=== PATIENT | female | born 1985 | race Caucasian/White ===

== ENCOUNTER 2016-07-21 07:08 | Emergency (ER) | payer MEDICAID ==
--- NOTE | ~2016-07-21 | ER ---
PATIENT'S NAME: [facility] AGE: 30 Y [address] ROOM: [place] [id number] LOCATION: [facility] ADMIT DATE: 07/21/2016 ER/Outpatient Report DISCHARGE DATE: 07/21/2016 FAMILY PHYSICIAN: Dillan Marrero MD ATTENDING PHYSICIAN: Skye Mathur TIME OF ARRIVAL: 0708 hours. TIME SEEN: 0708 hours. IDENTIFICATION: A 30-year-old female. CHIEF COMPLAINT: Asthma exacerbation. HISTORY OF PRESENT ILLNESS: The patient is a 30-year-old female with a history of asthma who is out of her medications and acutely short of breath this morning, so called 911. She has otherwise been feeling well. No fever or chills. Nonproductive cough. She does have seasonal allergic rhinitis. ALLERGIES: TO DAIRY, BUT NO KNOWN DRUG ALLERGIES. CURRENT MEDICATIONS: 1. She is supposed to be on Advair, albuterol nebulizers, and albuterol inhaler, and she is out of all 3 of those. 2. She is taking her Zyrtec and clonazepam. MEDICAL PROBLEMS: Asthma. PRIOR SURGERIES: Denies. SOCIAL HISTORY: The patient lives here in [place]. She is unemployed. Tobacco use: Occasional. Drug use: Denies. Alcohol: Denies. REVIEW OF SYSTEMS: All systems reviewed and negative other than what is noted in the HPI. Last menstrual period was the end of June. PATIENT'S NAME: [facility] AGE: 30 Y [address] ROOM: [place] [address] LOCATION: [facility] ADMIT DATE: 07/21/2016 ER/Outpatient Report DISCHARGE DATE: 07/21/2016 FAMILY PHYSICIAN: Dillan Marrero MD ATTENDING PHYSICIAN: Skye Mathur PHYSICAL EXAMINATION: VITAL SIGNS: Weight 62.9 kg, blood pressure 132/75, pulse 80, respirations 19, temperature 97.5, and saturation is 99% on room air. GENERAL: A 30-year-old female, in no acute distress. She has received DuoNeb treatment and an albuterol en route. HEENT: Unremarkable. Head: Normocephalic, atraumatic. Ears: TMs translucent, both ears. Nose: Mucosa pink, no lesions. Mouth: No lesions. Pharynx: Benign. NECK: Supple. No lymphadenopathy. LUNGS: Clear to auscultation. A few scattered wheezes. HEART: Regular rate and rhythm. ABDOMEN: Bowel sounds present. Soft and nondistended. No hepatosplenomegaly. No palpable masses. Nontender. SKIN: [place], warm, and dry. No lesions or rashes noted. NEUROLOGIC: No focal deficit. No lower extremity edema. No calf tenderness. DIAGNOSTIC DATA: Two-view chest x-ray: No acute process, pending Radiology over-read. IMPRESSION: Asthma exacerbation. PLAN: Prednisone 20 mg p.o. given here, 20 mg b.i.d. x5 days. Albuterol aerosol solution unit dose q.4 hours p.r.n. wheezing. Albuterol inhaler 2 puffs here and then 2 puffs q.4 hours p.r.n. wheezing. Follow up with Dr. Marrero next week, follow up sooner if any problems or concerns. Follow up immediately if any respiratory distress. The patient understands and agrees, and all questions have been answered. SKYE MATHUR MD CAR/modl /[id number] d: 07/21/16 1844 t: 07/24/16 0642, OUTPATIENT REPORT
== END 2016-07-21 08:15 | disposition disaster alternative care site (69) ==
LOC: GMED 07:08
DX: J45.901 Unspecified asthma with (acute) exacerbation (principal); Z91.011 Allergy to milk products; Z91.013 Allergy to seafood; Z79.899 Other long term (current) drug therapy
CPT/HCPCS: J7512

== ENCOUNTER → 2016-07-21 | Outpatient (CLI) | payer MEDICAID ==
[~2016-07-21] MED LIST: AMOXICILLIN875 MG PO; MIRALAX17 GM PO; PHENERGAN25 M1 PO; PRENATAL COMPL1 EACH OR; PROVENTIL OR V6.7 GM INH; TYLENOL325 MG PO
== END | disposition disaster alternative care site (69) ==
LOC: GAMB 06:52
DX: J45.901 Unspecified asthma with (acute) exacerbation (principal); R06.02 Shortness of breath; Z79.899 Other long term (current) drug therapy
CPT/HCPCS: A0422; A0425; A0427

== ENCOUNTER → 2016-08-29 | Outpatient (CLI) | payer MEDICAID | END | disposition disaster alternative care site (69) | LOC: GRAD 08-28 09:30 | DX: R10.30 Lower abdominal pain, unspecified (principal); N88.8 Other specified noninflammatory disorders of cervix uteri; N83.292 Other ovarian cyst, left side; N83.291 Other ovarian cyst, right side ==

== ENCOUNTER 2016-10-01 21:13 | Emergency (ER) | payer MEDICAID ==
--- NOTE | ~2016-10-01 | ER ---
[facility] 31 [facility] [address] ROOM: [place] [address] LOCATION: [facility] ADMIT DATE: 10/01/2016 ER/Outpatient Report DISCHARGE DATE: 10/01/2016 FAMILY PHYSICIAN: Dexter Darby MD ATTENDING PHYSICIAN: Darrian Pruett TIME: The patient was seen at 21:30. HISTORY OF PRESENT ILLNESS: This is a 31-year-old female. She was previously healthy. She is in with complaints of feeling shaky and nauseated and dizzy and lightheaded and double vision. It is gradual in onset. About 3 hours ago, she states she was outside and overheated, and did not have enough to drink, but she has been drinking fluids for the past three hours, and the symptoms have persisted. PAST MEDICAL HISTORY: She is vague about her medical history. She states she has some psychiatric problems and asthma. MEDICATIONS: She takes psych medications, she is uncertain what they are. She was started on a new psych medicine about one week ago. SOCIAL HISTORY: She smokes about one-fourth pack per day. She drinks alcohol occasionally. PHYSICAL EXAMINATION: GENERAL: Alert and cooperative female, in no acute distress. VITAL SIGNS: Stable. SKIN: Warm and dry. Color is normal. HEAD, EARS, EYES, NOSE, AND THROAT: Revealed pupils are equal, round, and reactive to light. Extraocular movements were intact. Ears, nose, and throat were clear. NECK: Supple. CARDIAC: Heart had a regular rate and rhythm without murmur. LUNGS: Clear. Breath sounds are equal. ABDOMEN: Soft. EXTREMITIES: Normal. NEUROLOGIC: Normal. LABORATORY DATA: CBC is unremarkable. Comprehensive metabolic profile revealed potassium was slightly low at 3.2. Urinalysis was negative. Specific gravity was 1.015. [facility] 31 Y [address] ROOM: [place] [address] LOCATION: [facility] ADMIT DATE: 10/01/2016 ER/Outpatient Report DISCHARGE DATE: 10/01/2016 FAMILY PHYSICIAN: Dexter Darby MD ATTENDING PHYSICIAN: Darrian Pruett ASSESSMENT: Mild dehydration/resolving. PLAN: Follow up with her regular doctor as needed. MD MARY SHARP/modl /[id number] d: 10/02/16 0655 t: 10/03/16 1754, OUTPATIENT REPORT
[2016-10-01 21:55] LABS: BASOPHIL # 0.1 K/uL (0.0-0.2); BASOPHIL % 0.8 %; EOSINOPHIL # 1.1 K/uL (0.0-0.5); EOSINOPHIL % 10.3 %; HEMATOCRIT 42.9 % (33.0-46.0); HEMOGLOBIN 14.1 g/dL (11.0-15.0); IMMATURE GRANULOCYTE % 0.2 %; LYMPHOCYTE # 3.3 K/uL (0.8-4.0); LYMPHOCYTE % 32.1 %; MCHC 32.9 gm/dL (32.0-36.5); MCV 79.2 fl (83.0-98.0); MONOCYTE # 0.7 K/uL (0.0-1.0); MONOCYTE % 6.3 %; MPV 8.7 fl (9.4-12.4); NEUTROPHIL # (ANC) 5.2 K/uL (1.8-7.8); NEUTROPHIL % 50.3 %; NRBC % 0 /100WBC (0-0.00); PLATELET COUNT 308 K/uL (150-450); RDW-CV 13.8 % (11.9-14.6); WBC 10.4 K/uL (4.0-11.0)
[2016-10-01 21:56] LABS: BILIRUBIN URINE NEGATIVE (NEGATIVE); BLOOD URINE NEGATIVE /UL (NEGATIVE); COLOR URINE YELLOW (YELLOW); GLUCOSE URINE NEGATIVE (NEGATIVE); KETONE URINE 15 mg/dL (NEGATIVE); LEUKOCYTES URINE 25 /UL (NEGATIVE); NITRITE URINE NEGATIVE (NEGATIVE); PROTEIN URINE 30 mg/dL (NEGATIVE); SPEC GRAVITY URINE 1.015 (1.003-1.035); TURBIDITY URINE CLEAR (CLEAR); UROBILINOGEN URINE 1 mg/dL (NORMAL)
[2016-10-01 21:58] LABS: RBC 5.42 M/uL (3.50-5.50)
[2016-10-01 22:13] LABS: ALBUMIN 4.1 gm/dL (3.5-5.0); ALK PHOS 104 IU/L (33-138); ALT 22 IU/L (12-78); ANION GAP 10.2 (10.0-19.0); AST 20 IU/L (10-40); BLOOD UREA NITROGEN 15 mg/dL (6-24); CALCIUM 8.5 mg/dL (8.5-10.5); CHLORIDE 110 mMol/L (96-110); CO2 23 mMol/L (22-32); POTASSIUM 3.2 mMol/L (3.7-5.1); SODIUM 140 mMol/L (135-145); TOTAL BILIRUBIN 0.2 mg/dL (0.0-1.5); TOTAL PROTEIN 8.1 g/dL (6.0-8.4)
[2016-10-01 22:17] LABS: BACTERIA URINE MANY (NEGATIVE); MUCUS URINE 4+ (NEGATIVE); RBC URINE NEGATIVE #/HPF (NEGATIVE)
[2016-10-01 22:20] LABS: COCAINE NEGATIVE (NEGATIVE); OPIATES NEGATIVE (NEGATIVE)
[2016-10-01 22:27] LABS: AMPHETAMINE NEGATIVE (NEGATIVE); BARBITURATE NEGATIVE (NEGATIVE)
== END 2016-10-01 22:38 | disposition disaster alternative care site (69) ==
LOC: GMED 21:13
PROVIDERS: Emergency Medicine
DX: E86.0 Dehydration (principal); F17.210 Nicotine dependence, cigarettes, uncomplicated; J45.909 Unspecified asthma, uncomplicated; Z79.899 Other long term (current) drug therapy